=== PATIENT | male | born 1960 | race Caucasian/White ===

== ENCOUNTER 2019-07-24 10:58 | Emergency (ER) | payer OTHER ==
--- NOTE | 2019-07-24 13:58 | ER ---
Nurse's Notes [facility] Name: Tulio Chavarria Age: 59 yrs Sex: Male : 1960 Arrival Date: 07/24/2019 Time: 11:00 Bed 13 Private MD: Nasir Main Diagnosis: Superficial injury of head Presentation: 07/23 11:08 Chief complaint: Patient states: Fell and hit left side of head on metal towel rack 4 jl7 days ago, scheduled for endoscopy tomorrow and Dr. Ramirez's office wont clear me until I'm cleared since it's still sore and I have a mild KAISER. Denies LOC, N/V/D. Coronavirus screen: The patient has NOT traveled to a country currently being monitored by the CDC within the last 14 days. Proceed with normal triage procedures. Ebola Screen: No symptoms or risks identified at this time. Mechanism of Injury: resulted from a fall, from a standing position. Initial Sepsis Screen: Does the patient meet any 2 criteria? No. Patient's initial sepsis screen is negative. Does the patient have a suspected source of infection? No. Patient's initial sepsis screen is negative. Risk Assessment: Do you want to hurt yourself or someone else? Patient reports no desire to harm self or others. Onset of symptoms was July 21, 2019. 11:08 Method Of Arrival: Ambulatory 7 11:08 Acuity: WOO 4 jl7 Triage Assessment: 11:14 General: Appears in no apparent distress. uncomfortable, Behavior is calm, cooperative, jl7 appropriate for age. Pain: Complains of pain in forehead, right voodoo and left voodoo Pain currently is 3 out of 10 on a pain scale. Quality of pain is described as throbbing. Neuro: Level of Consciousness is awake, alert, obeys commands, Oriented to person, place, time, situation, Reports none. Cardiovascular: Patient's skin is warm and dry. Respiratory: Airway is patent Respiratory effort is even, unlabored, Respiratory pattern is regular, symmetrical. Derm: Skin is pink, warm \T\ dry. Bruising that is yellow, on left side of scalp. Historical: - Allergies: 11:14 PENICILLINS; jl7 11:14 Sulfa (Sulfonamide Antibiotics); jl7 - Home Meds: 11:14 Bystolic 5 mg oral tab [Active]; Protonix Oral [Active]; Lexapro Oral [Active]; jl7 Buspirone Oral [Active]; aspirin 81 mg Oral TbEC [Active]; - PMHx: 11:14 GERD; Tachycardia; Anxiety; Depression; jl7 - PSHx: 11:14 Hernia repair; jl7 - Immunization history:: Adult Immunizations up to date. - Social history:: Smoking status: Patient reports use of chewing tobacco. Screenin:55 Abuse screen: Denies threats or abuse. Denies injuries from another. Nutritional mg2 screening: No deficits noted. Tuberculosis screening: No symptoms or risk factors identified. Fall Risk None identified. Assessment: 12:54 General: Appears in no apparent distress. comfortable, Behavior is calm, cooperative. mg2 Pain: Denies pain. Neuro: Level of Consciousness is awake, alert, obeys commands, Oriented to person, place, time, situation. Cardiovascular: Capillary refill < 3 seconds Patient's skin is warm and dry. Respiratory: Airway is patent Respiratory effort is even, unlabored, Respiratory pattern is regular, symmetrical. GI: No signs and/or symptoms were reported involving the gastrointestinal system. : No signs and/or symptoms were reported regarding the genitourinary system. EENT: No signs and/or symptoms were reported regarding the EENT system. Derm: Skin is intact, is healthy with good turgor, Skin is pink, warm \T\ dry. normal. Musculoskeletal: Circulation, motion, and sensation intact. Capillary refill < 3 seconds. Vital Signs: 11:08 BP 138 / 84; Pulse 59; Resp 17 S; Temp 98.6(O); Pulse Ox 99% on R/A; Weight 122.47 kg jl7 (R); Height 5 ft. 8 in. (172.72 cm) (R); Pain 3/10; 12:55 BP 130 / 80; Pulse 60; Resp 18; Temp 98.6; Pulse Ox 100% on R/A; mg2 11:08 Body Mass Index 41.05 (122.47 kg, 172.72 cm) jl7 Sieper Coma Score: 11:08 Eye Response: spontaneous(4). Verbal Response: oriented(5). Motor Response: obeys [facility] commands(6). Total: 15. 12:43 Eye Response: spontaneous(4). Verbal Response: oriented(5). Motor Response: obeys jr8 commands(6). Total: 15. ED Course: 11:00 Patient arrived in ED. ag5 11:00 Nasir Main DO is Private Physician. ag5 11:11 Triage completed. jl7 11:14 Arm band placed on right wrist. jl7 12:09 Keenan Rich, RN is Primary Nurse. mg2 12:13 Cleveland Reyna PA is PHCP. jr8 12:13 Gabe Mosher MD is Attending Physician. jr8 12:55 Patient has correct armband on for positive identification. mg2 12:55 No provider procedures requiring assistance completed. Patient did not have IV access mg2 during this emergency room visit. Administered Medications: No medications were administered Outcome: 12:48 Discharge ordered by . jr8 12:56 Discharged to home ambulatory. mg2 12:56 Condition: stable 12:56 Discharge instructions given to patient, Instructed on discharge instructions, follow up and referral plans. Demonstrated understanding of instructions, follow-up care. 12:56 Patient left the ED. mg2 Signatures: Cleveland Reyna PA PA jrColeen Overton RN RN jl7 Keenan Rich, RN RN mg2 Onesimo Daniel ag5
--- NOTE | 2019-07-24 13:59 | EDPHYS ---
Physician Documentation [facility] Name: Tulio Chavarria Age: 59 yrs Sex: Male : 1960 Arrival Date: 07/24/2019 Time: 11:00 Bed 13 Private MD: Nasir Main ED Physician Gabe Mosher HPI: 07/23 12:43 This 59 yrs old Male presents to ER via Ambulatory with complaints of Head jr8 Injury-Adult. 12:43 The patient or guardian reports tenderness. The complaints affect the forehead. Context jr8 of injury: The problem was sustained at home, resulted from a fall. Onset: The symptoms/episode began/occurred acutely, 4 day(s) ago. Associated signs and symptoms: The patient has no apparent associated signs or symptoms, Loss of consciousness: This patient did not experience any loss of consciousness. Severity of symptoms: At their worst the symptoms were mild, in the emergency department the symptoms are unchanged. The patient has not experienced similar symptoms in the past. The patient has not recently seen a physician. Stated that he tripped hitting head on metal portion of wall. Initially was dazed but did not have any LOC. Stated that he has been fine since then. Mild headaches on/off but stated that he normally has these and are not any worse than normal. Denies any other symptoms . Historical: - Allergies: 11:14 PENICILLINS; jl7 11:14 Sulfa (Sulfonamide Antibiotics); jl7 - Home Meds: 11:14 Bystolic 5 mg oral tab [Active]; Protonix Oral [Active]; Lexapro Oral [Active]; jl7 Buspirone Oral [Active]; aspirin 81 mg Oral TbEC [Active]; - PMHx: 11:14 GERD; Tachycardia; Anxiety; Depression; jl7 - PSHx: 11:14 Hernia repair; jl7 - Immunization history:: Adult Immunizations up to date. - Social history:: Smoking status: Patient reports use of chewing tobacco. ROS: 12:43 Eyes: Negative for injury, pain, redness, and discharge, ENT: Negative for injury, jr8 pain, and discharge, Neck: Negative for injury, pain, and swelling, Cardiovascular: Negative for chest pain, palpitations, and edema, Respiratory: Negative for shortness of breath, cough, wheezing, and pleuritic chest pain, Abdomen/GI: Negative for abdominal pain, nausea, vomiting, diarrhea, and constipation, Back: Negative for injury and pain, MS/Extremity: Negative for injury and deformity, Neuro: Negative for headache, weakness, numbness, tingling, and seizure. 12:43 Skin: Positive for ecchymosis, of the forehead. Exam: 12:43 Eyes: Pupils equal round and reactive to light, extra-ocular motions intact. Lids and jr8 lashes normal. Conjunctiva and sclera are non-icteric and not injected. Cornea within normal limits. Periorbital areas with no swelling, redness, or edema. ENT: Nares patent. No nasal discharge, no septal abnormalities noted. Tympanic membranes are normal and external auditory canals are clear. Oropharynx with no redness, swelling, or masses, exudates, or evidence of obstruction, uvula midline. Mucous membranes moist. Neck: Trachea midline, no thyromegaly or masses palpated, and no cervical lymphadenopathy. Supple, full range of motion without nuchal rigidity, or vertebral point tenderness. No Meningismus. Cardiovascular: Regular rate and rhythm with a normal S1 and S2. No gallops, murmurs, or rubs. Normal PMI, no JVD. No pulse deficits. Respiratory: Lungs have equal breath sounds bilaterally, clear to auscultation and percussion. No rales, rhonchi or wheezes noted. No increased work of breathing, no retractions or nasal flaring. Abdomen/GI: Soft, non-tender, with normal bowel sounds. No distension or tympany. No guarding or rebound. No evidence of tenderness throughout. Back: No spinal tenderness. No costovertebral tenderness. Full range of motion. Skin: Warm, dry with normal turgor. Normal color with no rashes, no lesions, and no evidence of cellulitis. MS/ Extremity: Pulses equal, no cyanosis. Neurovascular intact. Full, normal range of motion. Neuro: Awake and alert, GCS 15, oriented to person, place, time, and situation. Cranial nerves II-XII grossly intact. Motor strength 5/5 in all extremities. Sensory grossly intact. Cerebellar exam normal. Normal gait. 12:43 Head/face: mild healing bruise noted to left forehead. No other trauma noted . Vital Signs: 11:08 BP 138 / 84; Pulse 59; Resp 17 S; Temp 98.6(O); Pulse Ox 99% on R/A; Weight 122.47 kg jl7 (R); Height 5 ft. 8 in. (172.72 cm) (R); Pain 3/10; 12:55 BP 130 / 80; Pulse 60; Resp 18; Temp 98.6; Pulse Ox 100% on R/A; mg2 11:08 Body Mass Index 41.05 (122.47 kg, 172.72 cm) jl7 Sowmya Coma Score: 11:08 Eye Response: spontaneous(4). Verbal Response: oriented(5). Motor Response: obeys jl7 commands(6). Total: 15. 12:43 Eye Response: spontaneous(4). Verbal Response: oriented(5). Motor Response: obeys jr8 commands(6). Total: 15. MDM: 12:32 Patient medically screened. jr8 12:43 Data reviewed: vital signs, nurses notes, and as a result, I will discharge patient. jr8 Data interpreted: Pulse oximetry: on room air is 99 %. Interpretation: normal. Counseling: I had a detailed discussion with the patient and/or guardian regarding: the historical points, exam findings, and any diagnostic results supporting the discharge/admit diagnosis, the need for outpatient follow up, a family practitioner, to return to the emergency department if symptoms worsen or persist or if there are any questions or concerns that arise at home. ED course: Patient with no acute findings suggestive of TBI. Had no LOC at time of event. [place] CT rule negative. No other signs suggestive of worsening of condition. No need for CT at this time . Administered Medications: No medications were administered Disposition: 17:19 Co-signature as Attending Physician, Gabe Mosher MD I agree with the assessment and kdr plan of care. Disposition: 07/24/19 12:48 Discharged to Home. Impression: Superficial injury of head. - Condition is Stable. - Discharge Instructions: Head Injury, Adult. - Medication Reconciliation Form, Thank You Letter, Antibiotic Education, Prescription Opioid Use form. - Follow up: Private Physician; When: As needed; Reason: Recheck today's complaints, Continuance of care, Re-evaluation by your physician. - Problem is new. - Symptoms have improved. - Notes: Patient cleared for surgery from our perspective in regards to head injury Signatures: Gabe Mosher MD MD kdr Cleveland Reyna PA PA jr8 Coleen Obregon, RN RN jl7 Keenan Rich, RN RN mg2 Corrections: (The following items were deleted from the chart) 12:56 12:48 07/24/2019 12:48 Discharged to Home. Impression: Superficial injury of head. mg2 Condition is Stable. Forms are Medication Reconciliation Form, Thank You Letter, Antibiotic Education, Prescription Opioid Use. Follow up: Private Physician; When: As needed; Reason: Recheck today's complaints, Continuance of care, Re-evaluation by your physician. Problem is new. Symptoms have improved. jr8
[2019-07-24 14:10] VITALS: TEMP 98.6
[2019-07-24 14:12] VITALS: BP 130/80; O2SAT 100
== END 2019-07-24 12:56 | disposition home or self-care (01) ==
LOC: ER 10:58
DX: S00.80XA Unspecified superficial injury of other part of head, initial encounter (principal); W01.198A Fall on same level from slipping, tripping and stumbling with subsequent striking against other object, initial encounter; Y93.01 Activity, walking, marching and hiking; Y92.009 Unspecified place in unspecified non-institutional (private) residence as the place of occurrence of the external cause; F34.1 Dysthymic disorder; Z79.82 Long term (current) use of aspirin; Z88.0 Allergy status to penicillin; Z88.2 Allergy status to sulfonamides; F17.220 Nicotine dependence, chewing tobacco, uncomplicated
CPT/HCPCS: 99281